=== PATIENT | female | born 1950 | race Caucasian/White ===

== ENCOUNTER 2017-12-20 23:23 | Emergency (ER) | payer BC ==
[2017-12-20] MEDS ORDERED: CEPHALEXIN MONOHYDRATE 500 MG CAPSULE (UD) PO ONE (23:29)
--- NOTE | 2017-12-20 23:29 | PDOC ---
History of Present Illness - General Chief Complaint: Redness To Affected Area Stated Complaint: BUG BITES History Source: Patient - History of Present Illness Initial Comments: 12/21/17 06:27 increasing areas of erythema on upper left arm Timing/Duration: other (3 days) Severity: moderate Modifying Factors: worse with: movement Associated Symptoms: reports: denies symptoms. denies: fever/chills Past History - Past Medical History Allergies/Adverse Reactions: Allergies Allergy/AdvReac Type Severity Reaction Status Date / Time No Known Allergies Allergy Verified 12/14/15 13:30 Home Medications: Ambulatory Orders Anastrozole [Arimidex -] 1 mg PO DAILY 12/14/15 Pravastatin Sodium [Pravachol -] 20 mg PO HS 12/14/15 Amoxicillin - [Amoxicillin 500mg Capsule -] 500 mg PO Q12H #14 capsule 12/17/15 Cephalexin [Keflex] 500 mg PO QID #20 capsule 12/20/17 Cancer: Yes (BREAST) Hypercholesterolemia: Yes - Suicide/Smoking/Psychosocial Hx Smoking History: Never smoked Hx Alcohol Use: No Drug/Substance Use Hx: No Substance Use Type: None Review of Systems - Review of Systems All Other Systems: Reviewed and Negative *Physical Exam - Physical Exam General Appearance: Yes: Nourished, Appropriately Dressed HEENT: positive: Normal Voice Neck: negative: Lymphadenopathy (R), Lymphadenopathy (L) Respiratory/Chest: positive: Lungs Clear Cardiovascular: positive: Regular Rhythm Lymphatic: negative: Adenopathy Musculoskeletal: positive: Normal Inspection Extremity: positive: Normal Capillary Refill Integumentary: positive: Other (7 cm round area of erythema and warmth on uppper left arm, with central papule) Medical Decision Making - Medical Decision Making 12/21/17 06:30 infected bug bite with surrounding cellulitis abx *DC/Admit/Observation/Transfer Diagnosis at time of Disposition: Bug bite with infection Qualifiers: Encounter type: initial encounter Qualified Code(s): W57.XXXA - Bitten or stung by nonvenomous insect and other nonvenomous arthropods, initial encounter - Discharge Dispostion Disposition: HOME Condition at time of disposition: Stable - Prescriptions Prescriptions: Cephalexin [Keflex] 500 mg PO QID #20 capsule - Referrals Referrals: Zeferino Castañeda MD [Primary Care Provider] - Call tomorrow - Patient Instructions Printed Discharge Instructions: DI for Cellulitis -- Adult - Post Discharge Activity
[2017-12-20 23:31] VITALS: BP 147/75; PULSE 75; TEMP 98.5; BMI 33.6
[2017-12-20] MEDS ORDERED: CEPHALEXIN MONOHYDRATE 500 MG CAPSULE (UD) ONE (23:32)
== END 2017-12-20 23:37 | disposition home or self-care (01) ==
LOC: FER 23:23
DX: S60.862A Insect bite (nonvenomous) of left wrist, initial encounter (principal); W57.XXXA Bitten or stung by nonvenomous insect and other nonvenomous arthropods, initial encounter; Y93.89 Activity, other specified; Y92.9 Unspecified place or not applicable
CPT/HCPCS: 99281-25